=== PATIENT | female | born 1985 | race Caucasian/White ===

== ENCOUNTER 2016-10-03 17:21 | Emergency (ER) | payer SELFPAY ==
[2016-10-03 17:30] VITALS: BP 142/77
[2016-10-03] MEDS ORDERED: NAPROXEN SODIUM 550 MG TABLET PO ONE ×2 (17:41→18:07)
[2016-10-03] MEDS ORDERED: NAPROXEN SODIUM 550 MG TABLET ONE ×2 (17:47→18:11)
--- NOTE | 2016-10-03 17:48 | ERNOTE ---
Lower Extremity HPI - Narrative Date of Service: 10/03/16 - General Lower Extremities Pain: knee: right Time Seen by Provider: 10/03/16 17:31 Source: patient, family Exam Limitations: no limitations - Immun/Allergies/Home Medications Immunizations: IMMUNIZATION HX Immunizations Up to Date Yes History of Influenza Vaccine No Hx Pneumococcal Vaccination No Allergies/Adverse Reactions: Allergies Allergy/AdvReac Type Severity Reaction Status Date / Time aspirin Allergy Verified 01/08/13 20:05 calcium carbonate Allergy Verified 01/08/13 20:05 [From Rolaids] dihydroxyaluminum sodium Allergy Verified 01/08/13 20:05 carbonate [From Rolaids] magnesium hydroxide Allergy Verified 01/08/13 20:05 [From Rolaids] Penicillins Allergy Verified 01/08/13 20:05 Home Medications: HOME MEDICATIONS Levothyroxine Sodium [Levoxyl] 25 mcg PO DAILY 10/03/16 [Last Taken Unknown] Naproxen [Naprosyn] 500 mg PO BID #30 tablet 10/03/16 [Last Taken Unknown] Norgestimate-Ethinyl Estradiol [Mononessa 28 Tablet] 1 each PO DAILY 10/03/16 [ Last Taken Unknown] - History of Present Illness Narrative: On trampoline at home today, injured her right knee, heard a pop. Instant pain. Hard to walk, swollen, feels like it will give way. No prior injury. Swollen. Occurred: just prior to arrival Location of Incident: home Method of Injury: Reports: twisted Reason for Fall: Reports: lost balance Loss of Consciousness: Reports: no loss of consciousness Modifying Factors - (Improves): Reports: rest Modifying Factors - (Worsens): Reports: jarring, movement Associated Symptoms: Reports: popping sensation. Denies: other injuries Other Injuries: Reports: none Subsequent Symptoms: Denies: sensory loss, numbness, motor loss Prior Treament: Denies: recently seen, similar symptoms before, currently on antibiotics Review of Systems - Review of Systems Constitutional: Present: no symptoms reported EYE: Present: no symptoms reported ENT: Present: no symptoms reported Respiratory: Present: no symptoms reported Cardiology: Present: no symptoms reported Gastrointestinal/Abdominal: Present: no symptoms reported Genitourinary: Present: no symptoms reported Musculoskeletal: Present: See HPI Skin: Present: no symptoms reported Neurological: Present: no symptoms reported Endocrine: Present: no symptoms reported Hematologic/Lymphatic: Present: no symptoms reported Psych: Present: no symptoms reported All Other Systems: All systems neg except as marked - Patient's Past Medical History Patient History - Medical: Hypothyroidism Patient History - Cardiac/Respiratory: Hyperlipidemia Patient History - Cancer: No Hx of Cancer Patient History - Surgical Procedures: Appendectomy, T & A Patient History - Other: None - Social History Living Situations: home Abuse History: No History of abuse Psych History: No pertinent hx Smoking Status: Never smoker Have you smoked in the past 12 months: No Do you dip or chew tobacco: No Alcohol Use: none Drug Use: none - Immunizations Immunizations Up to Date: Yes Hx Pneumococcal Vaccination: No History of Influenza Vaccine: No Physical Exam - Physical Exam General Appearance: Present: wd/wn, alert, no apparent distress Eye Exam: Normal inspection: bilateral, PERRL: bilateral, EOMI: bilateral Ears, Nose, Throat: Present: normal ENT inspection Neck: Present: normal inspection, nontender Respiratory: Present: no respiratory distress Cardiovascular/Chest: Present: regular rate, rhythm Extremity Exam: Present: other - antalgic gait, mild swelling right knee, tender anteromedial joint line and MCL Neurological Exam: Present: alert, oriented, normal mood/affect, no motor/ sensory deficits Skin Exam: Present: normal color, warm/dry ED Progress - Vital Signs Patient's Vital Signs:: I have reviewed the patient's vital signs. Vital Signs: Vital Signs 10/03/16 17:24 Temperature 36.4 C L Pulse Rate 80 Respiratory 18 Rate Blood Pressure 142/77 O2 Sat by Pulse 99 Oximetry - X-Ray X-Ray #1 X-Ray: knee Interpretation: Interp. by me - no bony abnormality - Progress/Reassessment Chief Complaint: Lower Extremity Pain/ Injury Departure Clinical Impression: Internal derangement of knee Qualifiers: Laterality: right Qualified Code(s): M23.91 - Unspecified internal derangement of right knee - Departure Disposition: Home self-care Condition: Good Instructions: Knee Effusion, RICE for Routine Care of Injuries, [id number], Form - Excuse from Work, School, or Physical Activity Additional Instructions: No weight bearing on right knee. Elevate right knee. Rest. Ice 20 minutes hourly for 72 hours. Use crutches. Take Naproxen. Go to walk in clinic for further disposition, specifically ortho clinic sometime next week. Eventually you will need a Primary Care Doctor. Prescriptions: Naproxen [Naprosyn] 500 mg PO BID #30 tablet
--- OUTSIDE RECORDS SUMMARY | 2016-10-03 17:48 | XMS REPORT | Continuity of Care Document ---
:1985 Author Organization [facility] ([facility]) Address [address] [place] [address] Phone [phone] Care Team Providers Name Role Phone Unavailable Primary Care Provider Unavailable Source Comments This disclosure is being made pursuant to the Care Everywhere program, applicable federal and state laws, and may not contain all informaitonavailable regarding this patient.[facility] ([facility]) Active Allergies and Adverse Reactions Not on File Current Medications Not on file Active Problems Not on file Social History Tobacco Use Types Packs/Day Years Used Date Never Assessed Last Filed Vital Signs Vital Sign Reading Time Taken Blood Pressure - - Pulse - - Temperature - - Respiratory Rate - - Height 1.58 m (5' 2.2") 11/10/1999 2:01 PM CDT Weight 65.4 kg (144 lb 2.9 oz) 11/10/1999 2:01 PM CDT Body Mass Index 26.2 11/10/1999 2:01 PM CDT Oxygen Saturation - - Plan of Care Health Maintenance Due Date Last Done Comments Hepatitis B Vaccine (1 of 3 - Primary Series) 1984 Tdap Vaccine 09/24/1995 Lipid Disorder Screening 2002 MMR Vaccine 2002 Td Vaccine 2002 Varicella Vaccine (1 of 2 - Adult - No Evidence of 2002 Immunity) Cervical Cancer Screening 2014 Influenza Vaccine: Seasonal (#1) 12/07/2015 Results from Last 3 Months Not on file
== END 2016-10-03 18:25 | disposition home or self-care (01) ==
LOC: ER 17:21
DX: M23.91 Unspecified internal derangement of right knee (principal); E78.5 Hyperlipidemia, unspecified; X58.XXXA Exposure to other specified factors, initial encounter; Y93.44 Activity, trampolining; Y92.007 Garden or yard of unspecified non-institutional (private) residence as the place of occurrence of the external cause